=== PATIENT | male | born 1980 | race Caucasian/White ===

== ENCOUNTER 2020-08-08 15:44 | Emergency (ER) | payer OTHER, BC ==
[~2020-08-08] VITALS: Ht 188 cm; Wt 140.9 kg
[~2020-08-08 15:44] MED LIST: ALTACE10 MG PO; HCTZ
[2020-08-08 15:50] VITALS: TEMP 98.1
[2020-08-08] MEDS ORDERED: LIPITOR20 MG PO (16:09)
[2020-08-08] MEDS ORDERED: JANUMXR100-1000 PO (16:09)
[2020-08-08] MEDS ORDERED: ASPIRIN 81M81 MG/TA2 PO (16:09)
[2020-08-08] MEDS ORDERED: TRULICITY1.5 MG/0.5 SQ (16:10)
[2020-08-08] MEDS ORDERED: NORCO 325 MG-51 TAB PO (17:07)
[2020-08-08] MEDS ORDERED: BACTRIM DS 8001 TAB PO (17:07)
[2020-08-08 17:13] VITALS: BP 134/87; PULSE 94
== END 2020-08-08 17:14 | disposition home or self-care (01) ==
LOC: COL.ER 15:44
DX: S62.633A Displaced fracture of distal phalanx of left middle finger, initial encounter for closed fracture (principal); Z88.0 Allergy status to penicillin; Z79.84 Long term (current) use of oral hypoglycemic drugs; Z79.82 Long term (current) use of aspirin; W23.0XXA Caught, crushed, jammed, or pinched between moving objects, initial encounter